=== PATIENT | female | born 1965 | race Caucasian/White ===

== ENCOUNTER → 2024-02-03 13:33 | Outpatient (REF) | payer BC, SELFPAY | LOC: RAD 13:33 | PROVIDERS: ATTENDING PHYSICIAN Physician Assistant | DX: M85.852 Other specified disorders of bone density and structure, left thigh (principal) | CPT/HCPCS: 77080 ==

== ENCOUNTER → 2024-11-13 14:43 | Outpatient (REF) | payer BC, SELFPAY | LOC: WDC 14:43 | PROVIDERS: ATTENDING PHYSICIAN Physician Assistant | DX: Z12.31 Encounter for screening mammogram for malignant neoplasm of breast (principal) | CPT/HCPCS: 77063; 77067 ==

== ENCOUNTER 2025-07-26 06:24 | Day surgery (SDC) | payer BC, SELFPAY | END 2025-07-26 10:08 | disposition home or self-care (01) | LOC: GI 06:24 | PROVIDERS: ATTENDING PHYSICIAN Internal Medicine Gastroenterology; FAMILY PHYSICIAN Physician Assistant | DX: Z12.11 Encounter for screening for malignant neoplasm of colon (principal); K63.5 Polyp of colon; K64.8 Other hemorrhoids | CPT/HCPCS: 45385; 88305 ==